=== PATIENT | female | born 1980 | race Hispanic/Latino ===

== ENCOUNTER 2018-01-28 13:26 | Outpatient (CLI) | payer MEDICAID ==
--- NOTE | 2018-01-28 15:35 | ULT ---
TRANSABDOMINAL AND TRANSVAGINAL PELVIC ULTRASOUND: 01/28/18 INDICATION: History of ovarian cysts. COMPARISON: None. TECHNIQUE: Dahl scale, color doppler and vascular duplex with spectral analysis was performed of the pelvis. FINDINGS: The uterus measures 10.7 x 6.2 x 4.4 cm. Endometrial stripe measures 4 mm. The right ovary measures 3.3 x 2.5 x 2.6 cm. There is normal flow to the right ovary. Left ovary measures 6.8 x 4.2 x 3.5 cm. There are two separate mildly complex cysts involving the lef t ovary measuring 3 and 2.6 cm respectively. No free fluid is evident. IMPRESSION: Two separate mildly complex cysts involving the left ovary, both measuring near 3 cm in size. Due to their size and mild complexity would recommend a followup examination in 6 to 8 weeks to document sta bility or resolution. No additional sonographic abnormality within the pelvis. POS: [id number]
== END 2018-01-28 13:27 | disposition home or self-care (01) ==
LOC: ULT 13:26
PROVIDERS: ATTEND Family Medicine
DX: N83.202 Unspecified ovarian cyst, left side (principal)
CPT/HCPCS: 76856

== ENCOUNTER 2021-04-06 20:19 | Emergency (ER) | payer OTHER, SELFPAY ==
[2021-04-06 20:47] LABS: #Basophils 0.1 thou/uL (0.0-0.2); #Eosinphils 0.3 thou/uL (0.0-0.7); #Lymphocytes 4.7 thou/uL (1.20-3.40); #Monocytes 0.5 thou/uL (0.11-0.59); #Neutrophils 5.4 thou/uL (1.40-6.50); %Eosinophils 3.1 % (0.0-10.0); %Lymphocytes 42.6 % (21.0-51.0); %Monocytes 4.1 % (0.0-10.0); %Neutrophils 49.3 % (42.0-75.0); Hemoglobin 14.4 g/dL (12.0-16.0); Mean Corpuscular HGB CONC 35.8 g/dL (32.0-36.0); Mean Corpuscular Hemoglobin 31.5 pg (27.0-31.0); Mean Corpuscular Volume 87.9 fL (78.0-98.0); Mean Platelet Volume 7.6 fL (7.4-10.4); Platelet Count 306 thou/uL (130-400); RBC Distribution Width 11.5 % (11.5-14.5); Red Blood Cell (RBC) Count 4.57 mill/uL (4.20-5.40)
[2021-04-06 21:10] LABS: ALT (SGPT) 9 U/L (8-55); AST (SGOT) 8 U/L (5-34); Alkaline Phosphatase 171 U/L (40-110); Anion Gap 12 mmol/L (10-20); BUN (Urea Nitrogen) 7 mg/dL (7.0-18.7); Bilirubin, Total 0.9 mg/dL (0.2-1.2); Calc. Creatinine Clearance 0 mL/min (70-130); Carbon Dioxide 26 mmol/L (22-29); Chloride 100 mmol/L (98-107); Globulin 2.8 g/dL (2.4-3.5); Glucose 329 mg/dL (70-105); Potassium 3.2 mmol/L (3.5-5.1); Protein, Total 6.8 g/dL (6.0-8.3); Sodium 135 mmol/L (136-145)
[2021-04-06] MEDS ORDERED: Insulin Regular 300 UNITS/3 ML VIAL ONE (21:20)
[2021-04-06] MEDS ORDERED: Ibuprofen 200 MG TAB ONE (21:23)
[2021-04-06 21:27] LABS: Bilirubin Negative (Negative); Blood, Urine Negative (Negative); Clarity Clear (Clear); Glucose, Urine (Dipstick) Greater than 1000 mg/dL (Negative); Ketone, Urine Negative (Negative); Leukocyte 75 Leu/uL (Negative); Nitrite Negative (Negative); Protein, Urine (Dipstick) Negative (Neg-Trace); RBC/HPF 0-3 HPF (0-3); Specific Gravity, Urine 1.015 (1.002-1.036); Squamous Epithelial 0-3 HPF (0-3); Urobilinogen Normal mg/dL (Less than 2); WBC/HPF 0-3 HPF (0-3); pH, Urine 6.5 (5.0-9.0)
[2021-04-06 21:31] LABS: Bacteria/HPF 1+ HPF (None Seen)
[2021-04-06] MEDS ORDERED: Potassium Chloride 20 MEQ TAB ONE (22:06)
== END 2021-04-06 23:15 | disposition home or self-care (01) ==
LOC: ERS 20:19
DX: E11.65 Type 2 diabetes mellitus with hyperglycemia (principal); E78.5 Hyperlipidemia, unspecified; E78.00 Pure hypercholesterolemia, unspecified; F17.210 Nicotine dependence, cigarettes, uncomplicated; Z79.4 Long term (current) use of insulin; Z79.899 Other long term (current) drug therapy
CPT/HCPCS: 36415; 36416; 80053; 81003; 81015; 85025; 99281; J1815

== ENCOUNTER 2021-09-12 20:51 | Emergency (ER) | payer SELFPAY ==
[2021-09-12] MEDS ORDERED: Azithromycin 500 MG VIAL ONE (21:05)
[2021-09-12 21:28] LABS: #Basophils 0.1 thou/uL (0.0-0.2); #Eosinphils 0.4 thou/uL (0.0-0.7); #Lymphocytes 5.3 thou/uL (1.20-3.40); #Monocytes 0.6 thou/uL (0.11-0.59); #Neutrophils 5.3 thou/uL (1.40-6.50); %Basophils 1.3 % (0.0-1.0); %Eosinophils 3.3 % (0.0-10.0); %Lymphocytes 45.3 % (21.0-51.0); %Monocytes 5.3 % (0.0-10.0); %Neutrophils 44.9 % (42.0-75.0); Hemoglobin 14.5 g/dL (12.0-16.0); Mean Corpuscular HGB CONC 35.8 g/dL (32.0-36.0); Mean Corpuscular Hemoglobin 31.4 pg (27.0-31.0); Mean Corpuscular Volume 87.8 fL (78.0-98.0); Mean Platelet Volume 7.4 fL (7.4-10.4); Platelet Count 323 thou/uL (130-400); RBC Distribution Width 11.2 % (11.5-14.5); Red Blood Cell (RBC) Count 4.63 mill/uL (4.20-5.40); White Blood Cell (WBC) Count 11.7 thou/uL (4.8-10.8)
[2021-09-12 21:46] LABS: ALT (SGPT) 8 U/L (8-55); AST (SGOT) 8 U/L (5-34); Alkaline Phosphatase 161 U/L (40-110); Anion Gap 13 mmol/L (10-20); BUN (Urea Nitrogen) 9 mg/dL (7.0-18.7); Bilirubin, Total 0.9 mg/dL (0.2-1.2); Calc. Creatinine Clearance 0 mL/min (70-130); Calcium 9.5 mg/dL (7.8-10.44); Carbon Dioxide 27 mmol/L (22-29); Chloride 98 mmol/L (98-107); Globulin 3.3 g/dL (2.4-3.5); Glucose 352 mg/dL (70-105); Potassium 3.6 mmol/L (3.5-5.1); Protein, Total 7.3 g/dL (6.0-8.3); Sodium 134 mmol/L (136-145)
[2021-09-12] MEDS ORDERED: Morphine 4 MG/ML VIAL ONE (22:42)
== END 2021-09-12 22:39 | disposition home or self-care (01) ==
LOC: ERS 20:51
DX: L76.82 Other postprocedural complications of skin and subcutaneous tissue (principal); E78.5 Hyperlipidemia, unspecified; E78.00 Pure hypercholesterolemia, unspecified; F17.210 Nicotine dependence, cigarettes, uncomplicated; E11.9 Type 2 diabetes mellitus without complications; Z79.4 Long term (current) use of insulin
CPT/HCPCS: 36415; 80053; 85025; 99283; J0456; J2270

== ENCOUNTER 2023-05-07 17:08 | Emergency (ER) | payer SELFPAY | END 2023-05-07 17:41 | disposition home or self-care (01) | LOC: ERS 17:08 | DX: T25.221A Burn of second degree of right foot, initial encounter (principal); F17.210 Nicotine dependence, cigarettes, uncomplicated; E11.9 Type 2 diabetes mellitus without complications; X12.XXXA Contact with other hot fluids, initial encounter | CPT/HCPCS: 99283 ==

== ENCOUNTER 2024-05-14 10:30 | Emergency (ER) | payer OTHER, SELFPAY ==
[2024-05-14] MEDS ORDERED: Acetaminophen 500 MG TAB ONE (10:43)
[2024-05-14] MEDS ORDERED: Ketorolac Tromethamine 30 MG (1 mL) VIAL ONE (10:43)
== END 2024-05-14 11:39 | disposition home or self-care (01) ==
LOC: ERS 10:30
DX: S39.012A Strain of muscle, fascia and tendon of lower back, initial encounter (principal); F17.210 Nicotine dependence, cigarettes, uncomplicated; E11.9 Type 2 diabetes mellitus without complications; Z79.84 Long term (current) use of oral hypoglycemic drugs; Z79.4 Long term (current) use of insulin; W19.XXXA Unspecified fall, initial encounter
CPT/HCPCS: 72100; 72220; 96372; J1885

== ENCOUNTER 2025-06-23 14:19 | Emergency (ER) | payer OTHER ==
[2025-06-23 15:28] LABS: #Basophils 0.06 10x3/uL (0.0-0.2); #Eosinophils 0.10 10x3/uL (0.0-0.7); #Monocytes 0.60 10x3/uL (0.11-0.59); #Neutrophils 5.28 10x3/uL (1.40-6.50); %Basophils 0.8 % (0.0-1.0); %Eosinophils 1.4 % (0.0-10.0); %Lymphocytes 17.1 % (21.0-51.0); %Monocytes 8.2 % (0.0-10.0); %Neutrophils 72.2 % (42.0-75.0); Hematocrit 36.7 % (36.0-47.0); Hemoglobin 12.8 g/dL (12.0-16.0); Mean Corpuscular Hemoglobin 29.8 pg (27.0-31.0); Mean Corpuscular Volume 85.3 fL (78.0-98.0); Platelet Count 265 10x3/uL (130-400); Red Blood Cell (RBC) Count 4.30 mill/uL (4.20-5.40); White Blood Cell (WBC) Count 7.31 10x3/uL (4.8-10.8)
[2025-06-23] MEDS ORDERED: Acetaminophen 325 MG TAB ONE (15:32)
[2025-06-23] MEDS ORDERED: diphenhydrAMINE 50 MG/ML VIAL ONE (15:33)
[2025-06-23] MEDS ORDERED: Metoclopramide HCl 10 MG (2 mL) VIAL ONE (15:33)
[2025-06-23 15:48] LABS: ALT (SGPT) 11 U/L (Less than 34); AST (SGOT) 21 U/L (11-34); Albumin 4.0 g/dL (3.1-4.5); Alkaline Phosphatase 169 U/L (40-110); Anion Gap 13 mmol/L (10-20); BUN (Urea Nitrogen) 5 mg/dL (7.0-18.7); Bilirubin, Total 0.8 mg/dL (0.3-1.2); Calc. Creatinine Clearance 0 mL/min (70-130); Calcium 8.7 mg/dL (7.8-10.44); Carbon Dioxide 23 mmol/L (22-29); Chloride 102 mmol/L (98-107); Globulin 3.1 g/dL (2.4-3.5); Glucose 247 mg/dL (70-105); Potassium 3.2 mmol/L (3.5-5.1); Sodium 135 mmol/L (136-145)
== END 2025-06-23 16:15 | disposition home or self-care (01) ==
LOC: ERS 14:19
DX: U07.1 COVID-19 (principal); E11.9 Type 2 diabetes mellitus without complications; F17.210 Nicotine dependence, cigarettes, uncomplicated; Z79.4 Long term (current) use of insulin
CPT/HCPCS: 80053; 85025; 87081; 87426; 87430; 96374; 96375; J1200; J2765; J2919